=== PATIENT | male | born 1940 | race Caucasian/White ===

== ENCOUNTER → 2021-07-03 | Day surgery (SDC) | payer MEDICARE ==
[~2021-07-03] VITALS: Ht 177.8 cm; Wt 61.7 kg
[~2021-07-03] MED LIST: PRAVASTATIN SOD40 MG PO; SYNTHROID50 MCG PO; TOPROL XL 25MG25 MG PO
[2021-07-03 07:24] LABS: HCT 44.5 % (42.0-52.0); HGB 14.7 g/dl (13.2-18.0); MCH 32.7 pg (25.0-31.0); MCV 99.1 fL (78.0-100.0); MPV 9.9 fL (6.0-9.5); RBC 4.49 M/uL (4.70-6.00); RDW 13.8 % (11.5-14.0); WBC 4.8 K/uL (4.0-10.5)
[2021-07-03 07:43] LABS: ALBUMIN 3.9 g/dL (3.4-5.0); BILIRUBIN - TOTAL 0.6 mg/dL (0.2-1.0); BUN/CREAT RATIO (CALC) 22.7 RATIO; CREATININE 1.19 mg/dL (0.67-1.17); GLOBULIN (CALCULATION) 3.9 g/dL; POTASSIUM 4.1 mmol/L (3.5-5.1); TOTAL PROTEIN 7.8 g/dL (6.4-8.2)
== END | disposition home or self-care (01) ==
LOC: FAS 06:49
PROVIDERS: Surgery
DX: D12.8 Benign neoplasm of rectum (principal); K57.30 Diverticulosis of large intestine without perforation or abscess without bleeding; R10.12 Left upper quadrant pain; K58.0 Irritable bowel syndrome with diarrhea; I10 Essential (primary) hypertension; E78.00 Pure hypercholesterolemia, unspecified; E03.9 Hypothyroidism, unspecified; Z95.818 Presence of other cardiac implants and grafts; Z88.8 Allergy status to other drugs, medicaments and biological substances; Z79.82 Long term (current) use of aspirin; Z79.899 Other long term (current) drug therapy
CPT/HCPCS: 36415; 80053; J1610; J2704; J7120

== ENCOUNTER → 2021-08-09 | Day surgery (SDC) | payer MEDICARE ==
[~2021-08-09] VITALS: Ht 177.8 cm; Wt 61.7 kg
[2021-08-09 08:21] LABS: HCT 45.2 % (42.0-52.0); HGB 14.8 g/dl (13.2-18.0); MCH 32.5 pg (25.0-31.0); MCHC 32.7 g/dL (32.0-36.0); MCV 99.1 fL (78.0-100.0); MPV 10.2 fL (6.0-9.5); RBC 4.56 M/uL (4.70-6.00); RDW 13.6 % (11.5-14.0); WBC 5.9 K/uL (4.0-10.5)
[2021-08-09 08:58] LABS: ALBUMIN 3.4 g/dL (3.4-5.0); BILIRUBIN - TOTAL 0.6 mg/dL (0.2-1.0); CREATININE 1.24 mg/dL (0.67-1.17); GLOBULIN (CALCULATION) 3.8 g/dL; POTASSIUM 4.2 mmol/L (3.5-5.1); TOTAL PROTEIN 7.2 g/dL (6.4-8.2)
== END | disposition home or self-care (01) ==
LOC: FAS 07:26
PROVIDERS: Surgery
DX: D12.8 Benign neoplasm of rectum (principal); E03.9 Hypothyroidism, unspecified; I10 Essential (primary) hypertension; E78.5 Hyperlipidemia, unspecified
CPT/HCPCS: 36415; 80053; J1610; J2704; J7120

== ENCOUNTER → 2022-02-15 | Day surgery (SDC) | payer MEDICARE ==
[~2022-02-15] VITALS: Ht 170.2 cm; Wt 63.5 kg
[2022-02-15 08:07] LABS: HCT 42.9 % (42.0-52.0); MCH 32.3 pg (25.0-31.0); MCHC 32.6 g/dL (32.0-36.0); MCV 98.8 fL (78.0-100.0); MPV 10.2 fL (6.0-9.5); RBC 4.34 M/uL (4.70-6.00); RDW 13.5 % (11.5-14.0)
[2022-02-15 08:23] LABS: ALBUMIN 3.6 g/dL (3.4-5.0); BILIRUBIN - TOTAL 0.6 mg/dL (0.2-1.0); BUN/CREAT RATIO (CALC) 20.8 RATIO; CREATININE 1.2 mg/dL (0.67-1.17); GLOBULIN (CALCULATION) 3.7 g/dL; POTASSIUM 4.2 mmol/L (3.5-5.1); TOTAL PROTEIN 7.3 g/dL (6.4-8.2)
== END | disposition home or self-care (01) ==
LOC: FAS 07:09
PROVIDERS: Surgery
DX: D37.4 Neoplasm of uncertain behavior of colon (principal); R10.12 Left upper quadrant pain; R19.7 Diarrhea, unspecified; Z95.5 Presence of coronary angioplasty implant and graft; Z79.82 Long term (current) use of aspirin
CPT/HCPCS: 36415; 80053; J1610; J2704; J7120